=== PATIENT | female | born 1960 | race Caucasian/White ===

== ENCOUNTER 2017-12-12 18:32 | Emergency (ER) | payer OTHER ==
[2017-12-12 18:55] VITALS: RESP 16
[2017-12-12] MEDS ORDERED: Sodium Chloride 0.9% 1,000 ML IV STA (19:02)
[2017-12-12] MEDS ORDERED: Iohexol 240 (50 ml) PO ONE (19:28)
--- NOTE | 2017-12-12 19:31 | ED PDOC ---
HPI: Abdomen Time Seen by Provider: 12/12/17 19:01 Chief Complaint (Nursing): Abdominal Pain History Per: Patient History/Exam Limitations: no limitations Additional Complaint(s): 57 yo F complains of 3 week h/o intermittent lower abdominal pain which has been constant this week, radiating to the back, associated with N/V and dark colored stools. Otherwise: (-) fever, (-) diarrhea, (-) fever, (-) urinary symptoms, (-) melena, (-) hematochezia. Has no history of prior abdominal surgery. Past Medical History Vital Signs: Last Vital Signs Temp 98.2 F 12/13/17 00:50 Pulse 86 12/13/17 00:50 Resp 16 12/13/17 00:50 BP 139/84 12/13/17 00:50 Pulse Ox 99 12/13/17 10:55 - Surgical History Surgical History: No Surg Hx - Family History Family History: States: No Known Family Hx - Home Medications Home Medications: Ambulatory Orders Medication Instructions Recorded Nitrofurantoin Macrocrystals 100 mg PO BID #14 cap 12/13/17 [Macrobid] - Allergies Allergies/Adverse Reactions: Allergies Allergy/AdvReac Type Severity Reaction Status Date / Time No Known Allergies Allergy Verified 12/12/17 18:57 Review of Systems Constitutional: Negative for: Fever, Malaise Cardiovascular: Negative for: Chest Pain, Palpitations Respiratory: Negative for: Cough, Shortness of Breath Gastrointestinal: Positive for: Nausea, Vomiting, Abdominal Pain. Negative for : Diarrhea Genitourinary Female: Negative for: Dysuria, Frequency Musculoskeletal: Negative for: Neck Pain, Back Pain Skin: Negative for: Rash, Lesions Physical Exam - Reviewed Vital Signs Reviewed: Yes - Physical Exam Appears: Positive for: Well, Non-toxic, No Acute Distress Head Exam: Positive for: ATRAUMATIC, NORMAL INSPECTION, NORMOCEPHALIC Skin: Positive for: Normal Color, Warm, DRY Eye Exam: Positive for: EOMI, Normal appearance, PERRL ENT: Positive for: Normal ENT Inspection Neck: Positive for: Normal, Painless ROM Cardiovascular/Chest: Positive for: Regular Rate, Rhythm. Negative for: Murmur Respiratory: Positive for: Normal Breath Sounds. Negative for: Rhonchi, Wheezing Gastrointestinal/Abdominal: Positive for: Normal Exam, Soft. Negative for: Tenderness, Organomegaly, Mass, Distended, Guarding, Rebound Back: Positive for: Normal Inspection. 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 Negative for: Hemorrhoids, Mass, Tenderness Extremity: Positive for: Normal ROM Neurologic/Psych: Positive for: Alert, chemical machine tender II-XII (intact), Oriented. Negative for: Motor/Sensory Deficits - Laboratory Results Result Diagrams: 12/12/17 20:10 12/12/17 20:10 - ECG O2 Sat by Pulse Oximetry: 99 Medical Decision Making Medical Decision Making: Plan: -- Labs -- Occult blood stool -- IV fluids -- Urinalysis -- Pepcid / Zofran -- Reassess and disposition -- CT AP with PO and IV contrast 1999 Case endorsed to DAMIEN Small pending CT and final disposition. Disposition - Clinical Impression Clinical Impression: Abdominal pain, Urinary tract infection - Disposition Referrals: [facility] [Outside] Disposition: Transfer of Care (Case endorsed to DAMIEN Small pending CT and final disposition) Disposition Time: 20:00 Condition: STABLE Additional Instructions: Take prescription meds as directed. Drink plenty of fluids. Take Tylenol or Advil for pain as needed. Follow-up with clinic in 2-3 days or return to ED at any time if acutely worse. Prescriptions: Nitrofurantoin Macrocrystals [Macrobid] 100 mg PO BID #14 cap Instructions: Urinary Tract Infection, Adult (DC), Stomach Ache and Stomach Upset Forms: [employer] ([place]ammarinese)
[2017-12-12] MEDS ORDERED: Iohexol 240 (50 ml) ONE (20:13)
[2017-12-12 20:15] LABS: BASO % 0.4 % (0.0-2.0); EOS # 0.3 K/uL (0.0-0.7); EOS % 2.4 % (0.0-4.0); HEMOGLOBIN 12.6 g/dL (12.0-16.0); LYMPH # 2.9 K/uL (1.0-4.3); LYMPH % 25.9 % (20.0-40.0); MEAN CELL VOLUME 81.7 fl (81.0-99.0); MEAN CORPUSCULAR HEMOGLOBIN 26.6 pg (27.0-31.0); MEAN CORPUSCULAR HGB CONC 32.5 g/dL (33.0-37.0); MEAN PLATELET VOLUME 9.2 fl (7.2-11.7); MONO # 0.7 K/uL (0.0-0.8); MONO % 6.1 % (0.0-10.0); NEUT # 7.3 K/uL (1.8-7.0); NEUT % 65.2 % (50.0-75.0); NRBC % 0.1 % (0.0-0.0); RBC 4.76 Mil/uL (3.80-5.20); RED CELL DISTRIBUTION WIDTH 14.5 % (11.5-14.5); WHITE BLOOD COUNT 11.2 K/uL (4.8-10.8)
--- NOTE | 2017-12-12 20:23 | ED PDOC ---
- Laboratory Results Result Diagrams: 12/12/17 20:10 12/12/17 20:10 Urine dip results: Positive for: Leukocyte Esterase (small), Blood (trace). Negative for: Nitrate, Ketones, Glucose, Bilirubin, Protein - ECG O2 Sat by Pulse Oximetry: 99 Pulse Ox Interpretation: Normal - Other Rad CT abd and pelvis X-Ray: Read By Radiologist X-Ray Interpretation: see below Medical Decision Making Medical Decision Making: Case was signed out to newspaper writer pending CAT scan results. CT: FINDINGS: LUNG BASES: No significant abnormality seen. ABDOMEN: LIVER: No acute abnormality of the liver identified. GALLBLADDER AND BILE DUCTS: No CT evidence of acute cholecystitis. No evidence of significant biliary ductal dilatation. PANCREAS: No CT evidence of acute pancreatitis. SPLEEN: No acute abnormality of the spleen identified. ADRENALS: No acute abnormality of the adrenal glands identified. KIDNEYS AND URETERS: Low density lesions in the kidneys bilaterally, most likely representing cysts. No evidence of hydroureteronephrosis. STOMACH AND BOWEL: Scattered colonic diverticulosis, without evidence of diverticulitis. Otherwise, no significant abnormality of the bowel is identified. No evidence of bowel obstruction. No acute abnormality of the stomach or duodenum identified. PELVIS: APPENDIX: Appendix is seen, and is within normal limits in appearance. BLADDER: No acute abnormality of the bladder identified. REPRODUCTIVE: Uterus is enlarged, and has a lobulated contour. Findings are most compatible with fibroids. There is a 3.7 cm exophytic right anterior uterine fibroid. No evidence of large adnexal masses. ABDOMEN and PELVIS: INTRAPERITONEAL SPACE: No evidence of free intraperitoneal air or fluid. BONES/JOINTS: No acute fractures or other acute bony abnormality noted. SOFT TISSUES: No acute abnormality of the visualized soft tissues is seen. VASCULATURE: No evidence of abdominal aortic aneurysm. No evidence of periaortic hemorrhage. LYMPH NODES: No evidence of diffuse lymphadenopathy. IMPRESSION: - No evidence of a significant acute process. No definite cause for pain identified. - See above for multiple remaining non-emergent findings. Patient is aware of all diagnostic testing results, all questions answered. Patient made aware of all incidental findings. Pain has improved and patient states she feel much better. UTI is noted, patient will be sent home with prescription for Macrobid. Advised fluids, rest, NSAIDs for pain as needed and PMD follow-up. Disposition - Clinical Impression Clinical Impression: Abdominal pain, Urinary tract infection - POA Present On Arrival: None - Disposition Referrals: [facility] [Outside] Disposition: Routine/Home Disposition Time: 00:20 Condition: STABLE Additional Instructions: Take prescription meds as directed. Drink plenty of fluids. Take Tylenol or Advil for pain as needed. Follow-up with clinic in 2-3 days or return to ED at any time if acutely worse. Prescriptions: Nitrofurantoin Macrocrystals [Macrobid] 100 mg PO BID #14 cap Instructions: Urinary Tract Infection, Adult (DC), Stomach Ache and Stomach Upset Forms: [employer] ([place]ian) Results - Lab Results Lab Results: 12/12/17 12/12/17 12/12/17 20:30 20:10 20:10 WBC 11.2 H RBC 4.76 Hgb 12.6 Hct 38.9 MCV 81.7 MCH 26.6 L MCHC 32.5 L RDW 14.5 Plt Count 288 MPV 9.2 Neut % (Auto) 65.2 Lymph % (Auto) 25.9 [place] % (Auto) 6.1 Eos % (Auto) 2.4 Baso % (Auto) 0.4 Neut # (Auto) 7.3 H Lymph # (Auto) 2.9 [place] # (Auto) 0.7 Eos # (Auto) 0.3 Baso # (Auto) 0.0 Sodium 138 Potassium 3.8 Chloride 99 Carbon Dioxide 26 Anion Gap 17 BUN 8 Creatinine 0.5 L Est GFR ( Amer) > 60 Est GFR (Non-Af Amer) > 60 Random Glucose 112 H Calcium 9.3 Total Bilirubin 0.6 AST 31 ALT 31 Alkaline Phosphatase 119 Total Protein 8.6 H Albumin 4.8 Globulin 3.8 Albumin/Globulin Ratio 1.2 Lipase 73 Urine Color Yellow Urine Clarity Slighty-cloudy Urine pH 6.0 Ur Specific [place] 1.010 Urine Protein Negative Urine Glucose (UA) Neg Urine Ketones Negative Urine Blood Small Urine Nitrate Negative Urine Bilirubin Negative Urine Urobilinogen 0.2-1.0 Ur Leukocyte Esterase Large Urine RBC (Auto) 8 H Urine Microscopic WBC 84 H Ur Squamous Epith Cells 1 Stool Occult Blood 12/12/17 19:52 WBC RBC Hgb Hct MCV MCH MCHC RDW Plt Count MPV Neut % (Auto) Lymph % (Auto) [place] % (Auto) Eos % (Auto) Baso % (Auto) Neut # (Auto) Lymph # (Auto) [place] # (Auto) Eos # (Auto) Baso # (Auto) Sodium Potassium Chloride Carbon Dioxide Anion Gap BUN Creatinine Est GFR ( Amer) Est GFR (Non-Af Amer) Random Glucose Calcium Total Bilirubin AST ALT Alkaline Phosphatase Total Protein Albumin Globulin Albumin/Globulin Ratio Lipase Urine Color Urine Clarity Urine pH Ur Specific [place] Urine Protein Urine Glucose (UA) Urine Ketones Urine Blood Urine Nitrate Urine Bilirubin Urine Urobilinogen Ur Leukocyte Esterase Urine RBC (Auto) Urine Microscopic WBC Ur Squamous Epith Cells Stool Occult Blood Negative
[2017-12-12 20:26] LABS: ALB/GLOB RATIO 1.2 (1.0-2.1); ALBUMIN 4.8 g/dL (3.5-5.0); ALT/SGPT 31 U/L (9-52); AST/SGOT 31 U/L (14-36); BLOOD UREA NITROGEN 8 mg/dl (7-17); CALCIUM 9.3 mg/dL (8.4-10.2); GFR AFRICAN-AMERICAN > 60; GFR NON-AFRICAN AMERICAN > 60; LIPASE 73 U/L (23-300)
[2017-12-12 20:54] LABS: SQUAMOUS EPITHIAL 1 /hpf (0-5); URINE BILIRUBIN NEGATIVE (NEGATIVE); URINE BLOOD SMALL (NEGATIVE); URINE CLARITY SLIGHTY-CLOUDY (Clear); URINE COLOR YELLOW (YELLOW); URINE GLUCOSE (UA) NEG (Normal); URINE LEUKOCYTE ESTERASE LARGE Leu/uL (Negative); URINE PROTEIN NEGATIVE (NEGATIVE); URINE UROBILINOGEN 0.2-1.0 mg/dL (0.2-1.0)
[2017-12-12] MEDS ORDERED: Iohexol 300 100 ML IJ ONE (23:00)
[2017-12-12] MEDS ORDERED: Sodium Chloride 0.9% 50 ML IV ONE (23:01)
[2017-12-13 01:08] VITALS: BP 139/84; PULSE 86; TEMP 98.2
[2017-12-13 10:51] VITALS: O2SAT 99
--- NOTE | 2017-12-13 11:04 | CT ---
Date of service: 12/12/2017 PROCEDURE: CT Abdomen and Pelvis with contrast HISTORY: 3 wks lower abd pain COMPARISON: None. TECHNIQUE: Following oral and intravenous contrast administration, a CT examination of the abdomen and pelvis performed from the domes of the diaphragms to the symphysis pubis with reformatted datasets provided not only axial but also sagittal and coronal series. Contrast dose: Omnipaque 300, 95 cc Radiation dose: Total exam DLP = 814.64 mGy-cm. This CT exam was performed using one or more of the following dose reduction techniques: Automated exposure control, adjustment of the mA and/or kV according to patient size, and/or use of iterative reconstruction technique. FINDINGS: LOWER THORAX: Unremarkable. LIVER: Unremarkable. No gross lesion or ductal dilatation. GALLBLADDER AND BILE DUCTS: Unremarkable. PANCREAS: Unremarkable. No gross lesion or ductal dilatation. SPLEEN: Unremarkable. ADRENALS: Unremarkable. No mass. KIDNEYS AND URETERS: There is a 2.2 cm cyst identified in the upper pole right kidney with a smaller lucency at mid to lower pole right kidney too small to characterize. No obstructive uropathy bilaterally or definite radiodense urolithiasis. There is also a very small lucency seen at the upper pole left kidney too also solid characterized. VASCULATURE: Unremarkable. No aortic aneurysm. BOWEL: Unremarkable. No obstruction. No gross mural thickening. APPENDIX: Normal appendix. PERITONEUM: Unremarkable. No free fluid. No free air. LYMPH NODES: Unremarkable. No enlarged lymph nodes. BLADDER: Unremarkable. REPRODUCTIVE: Enlarged, lobular uterus with likely reflects uterine fibroids. BONES: No acute fracture. OTHER FINDINGS: None. IMPRESSION: 1. No definite acute abdominal or pelvic findings by standard CT criteria. 2. Right renal cyst. Solitary small lucencies are seen in addition to the right renal cysts but of both kidneys too small to characterize. 3. Likely uterine fibroids. Follow-up ultrasonography can be performed on elective basis for follow-up. Concordant preliminary report from [facility], 12/13/2017.
== END 2017-12-13 00:55 | disposition home or self-care (01) ==
LOC: H.ER 18:32
DX: N39.0 Urinary tract infection, site not specified (principal); R10.9 Unspecified abdominal pain; D25.9 Leiomyoma of uterus, unspecified; N28.1 Cyst of kidney, acquired
CPT/HCPCS: 74177; 80053; 81003; 83690; 85025; 87086; 96361; 96374; 96375; 99284; G0328; J2405; J7030; Q9966; Q9967